=== PATIENT | female | born 1950 | race Caucasian/White ===

== ENCOUNTER 2017-05-01 13:45 | Outpatient (RCR) | payer MEDICARE, OTHER, SELFPAY ==
[2017-04-23 01:21] VITALS: BP 130/73; PULSE 79; RESP 18; TEMP 36.3; BMI 22.8
[2017-04-24 13:58] VITALS: BP 129/79; PULSE 75; RESP 18; TEMP 36.6; BMI 22.8
--- NOTE | 2017-04-24 15:46 | PCM.WC.PN ---
(1) Non-pressure chronic ulcer of other part of right lower leg with fat layer exposed Status: Acute Current Visit: Yes Code(s): L97.812 - Non-pressure chronic ulcer of other part of right lower leg with fat layer exposed (2) Venous insufficiency (chronic) (peripheral) Status: Chronic Current Visit: Yes Comment: I87.2 (3) Struck by falling object Status: Acute Current Visit: Yes Qualifiers: Encounter type: initial encounter Code(s): W20.8XXA - Other cause of strike by thrown, projected or falling object, initial encounter Type of Wound Date of Service: 04/24/17 Chief Complaint: R parekh wound History of Wound: 66 year old woman with PMH significant for SLE, RA, OA presents with 2 week history of R parekh non-healing ulcer present since her accidentally dropped a TV remote on her leg. Has been covering with dry gauze dressing only. Denies pus,malodor, warmth,pain. Has multiple spider and vericose veins, has never seen a vascular surgeon. Has had vascular testing, so we will obtain these results from [facility]. 03/06--ELINA wnl, venous testing negative for DVT but they did not check for reflux. Using vic every other day, notes minimal drainage. Ulcer stable. Tolerated light spandagrip well. 03/13--Improved with increased compression. Denies redness, pus, malodor, warmth, pain. 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 Referral to Dr. Alcala for possible EVLA. Ulceration non-healing due to venous insufficiency. 03/20--Improved with increased compression. Denies redness, pus, malodor, warmth, pain. 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 Referral to Dr. Alcala for possible EVLA. Ulceration non-healing due to venous insufficiency. 03/27--Ulcer measuring larger due to 3M wrap and stasis pad causing skin tear. Will discontinue this and go back to spandagrip moderate compression. Pending consult with Dr. Alcala for venous insufficiency. 04/10--Unchanged. Awaiting consult with Dr. Alcala for venous insufficiency. If ulceration still not improving, plan for biopsy to assess for other etiology. Denies redness, pus,malodor,warmth, pain. Denies N/V/F/C. 04/24/17--Improved. Awaiting consult with Dr. Alcala for venous insufficiency. If ulceration stops improving, plan for biopsy to assess for other etiology. Denies redness, pus,malodor,warmth, pain. Denies N/V/F/C. Progress of Wound: Improved. - Physical Exam Vital Signs Temp Pulse Resp BP 97.8 F 75 18 129/79 H 04/24/17 13:58 04/24/17 13:58 04/24/17 13:58 04/24/17 13:58 General: Alert, Oriented x3, Cooperative, No apparent distress Skin: Ulcer/ Wound - R parekh with no erythema, no malodor, no pus, no calor, no TTP. No clinical signs of acute bacterial infection noted. See nurse's wound assessment. Wound Measurements and Assessment WC - Nurse 1 - General Ulcer Measurement Start: 04/24/17 13:58 Freq: Status: Active Protocol: Activity Type Activity Date Activity User E-Sign Co-Sign Detail Recorded Client Recorded Date Recorded By Document 04/24/17 13:58 DL [id number] 04/24/17 14:04 DL 04/24/17 13:58 Wound Center Nurse 1 [Ulcer Assessment Protocol: WC.WD.LOC] #1 Right Lower Parekh -Current Size (cm) - Length 1.5 -Current Size (cm) - Width 2.3 -Current Size (cm) - Depth 0.1 -Total Square Cm 3.45 -Photo Taken No -Exudate Amt Small (1-33%) -Exudate Type Serosanguineous -Wound Margin Distinct, Outline Attached -Granulation Amt Large (67-100%) -Granulation Quality Hyper- granulation Red -Necrosis Amt Small (1-33%) -Necrotic Tissue Type Adherent Slough -Structure Exposed N/A -Texture (Kanchan-wound Skin Appearance) Scarring -Moisture (Kanchan-wound Skin Appearance No Abnormality ) -Color (Kanchan-wound Skin Appearance) No Abnormality -Temperature (Kanchan-wound Skin No Abnormality Appearance) (Pt Warm) -Ulcer Cleansing Wound Cleanser -Foul Odor after Cleansing No -Anesthetic Used 4% Lidocaine Solution [Edema Assessment] -Right Calf (cm) 33 -Right Ankle (cm) 21 WC - Nurse 2 - General Ulcer CM Notes Start: 04/24/17 13:58 Freq: Status: Active Protocol: Activity Type Activity Date Activity User E-Sign Co-Sign Detail Recorded Client Recorded Date Recorded By Document 04/24/17 14:58 MW [id number] 04/24/17 15:02 MW 04/24/17 14:58 Wound Center Nurse 2 [Procedure/Treatment] #1 Right Lower Parekh -Time 14:58 -Correct Patient Yes -Correct Side, Site, Position Yes -Correct Procedure Yes -Procedure Performed Yes -Type of Procedure Debridement -Clinical Debridement Subcutaneous -Post Debridement Size (cm) - Length 1.6 -Post Debridement Size (cm) - Width 2.4 -Post Debridement Size (cm) - Depth 0.1 -Total Square Cm 3.84 -Wound/Ulcer Outcome Not Healed -Ulcer Cleansing Rinsed/ Irrigated with Saline -Foul Odor after Cleansing No -Bioengineered Tissue No -Cetacaine [place] No -Bleeding Controlled with Pressure -Treatment Response Procedure Tolerated Well [See Physician Procedure note for Specifics] Pain Scale: 0-10 Numeric [Pain] -Is Patient Pain Free? Yes Debridement Note Post-Debridement Measurements/Treatment - Nurse 2 - General Ulcer CM Notes Start: 04/24/17 13:58 Freq: Status: Active Protocol: Activity Type Activity Date Activity User E-Sign Co-Sign Detail Recorded Client Recorded Date Recorded By Document 04/24/17 14:58 MW [id number] 04/24/17 15:02 MW 04/24/17 14:58 Wound Center Nurse 2 #1 Right Lower Parekh -Time 14:58 -Correct Patient Yes -Correct Side, Site, Position Yes -Correct Procedure Yes -Procedure Performed Yes -Type of Procedure Debridement -Clinical Debridement Subcutaneous -Post Debridement Size (cm) - Length 1.6 -Post Debridement Size (cm) - Width 2.4 -Post Debridement Size (cm) - Depth 0.1 -Total Square Cm 3.84 -Wound/Ulcer Outcome Not Healed -Ulcer Cleansing Rinsed/ Irrigated with Saline -Foul Odor after Cleansing No -Bioengineered Tissue No -Cetacaine [place] No -Bleeding Controlled with Pressure -Treatment Response Procedure Tolerated Well Pain Scale: 0-10 Numeric Is Patient Pain Free? Yes Wound debrided: R parekh Laterality: Right Wound Grade/Stage: Full thickness, nonhealing due to venous insufficiency Type of Debridement: Excisional debridement Anesthesia Used: 4% Lidocaine Solution Depth: Down to and including healthy tissue, in the subcutaneous layer Percentage of wound debrided: 100 Instrument Used: 3mm curette Tissue Removed: fibrous slough, hypergranular tissue Severity: Fat Layer Exposed Amount of bleeding with debridement: Mild Bleeding Controlled with: Pressure, Compression and gauze, Silver Nitrate - for hypergranular tissue Patient tolerated procedure well Assessment/Plan Active Problems Non-pressure chronic ulcer of other part of right lower leg with fat layer exposed (Acute) Struck by falling object (Acute) Venous insufficiency (chronic) (peripheral) (Chronic) I87.2 Assessment: see diagnoses Plan: SQ/excisional debridment R parekh ulcer as above. Cont promogran and dry dressing, moderate spandagrip. Change 3x/week, may decrease to q3days if promogran is not completely dissolving. Discussed importance of leg elevation, avoiding idle sitting or standing, increasing activity, weight management. Pt unable to take PO NSAIDs due to interactions with other medications except admits to taking one advil daily which does help with her pain. Ulcer does not require offloading due to location, but do not cross legs. Referral to vascular surgery for venous insufficiency--this visit is scheduled for tomorrow. Monitor for redness, pus, malodor, warmth, pain, inc swelling as well as for N/V/F/C and go to the ED with these. RTC 1 week, call with questions.
[2017-05-01 13:52] VITALS: BP 112/74; PULSE 83; RESP 16; TEMP 36.3; BMI 22.8
--- NOTE | 2017-05-01 14:39 | PCM.WC.PN ---
(1) Non-pressure chronic ulcer of other part of right lower leg with fat layer exposed Status: Acute Current Visit: Yes Code(s): L97.812 - Non-pressure chronic ulcer of other part of right lower leg with fat layer exposed (2) Venous insufficiency (chronic) (peripheral) Status: Chronic Current Visit: Yes Comment: I87.2 (3) Struck by falling object Status: Acute Current Visit: Yes Qualifiers: Encounter type: initial encounter Code(s): W20.8XXA - Other cause of strike by thrown, projected or falling object, initial encounter Type of Wound Date of Service: 05/01/17 Chief Complaint: R sotelo wound History of Wound: 66 year old woman with PMH significant for SLE, RA, OA presents with 2 week history of R sotelo non-healing ulcer present since her accidentally dropped a TV remote on her leg. Has been covering with dry gauze dressing only. Denies pus,malodor, warmth,pain. Has multiple spider and vericose veins, has never seen a vascular surgeon. Has had vascular testing, so we will obtain these results from [facility]. 03/06--ELINA wnl, venous testing negative for DVT but they did not check for reflux. Using vic every other day, notes minimal drainage. Ulcer stable. Tolerated light spandagrip well. 03/13--Improved with increased compression. Denies redness, pus, malodor, warmth, pain. 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 Referral to Dr. Alcala for possible EVLA. Ulceration non-healing due to venous insufficiency. 03/20--Improved with increased compression. Denies redness, pus, malodor, warmth, pain. 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 Referral to Dr. Alcala for possible EVLA. Ulceration non-healing due to venous insufficiency. 03/27--Ulcer measuring larger due to 3M wrap and stasis pad causing skin tear. Will discontinue this and go back to spandagrip moderate compression. Pending consult with Dr. Alcala for venous insufficiency. 04/10--Unchanged. Awaiting consult with Dr. Alcala for venous insufficiency. If ulceration still not improving, plan for biopsy to assess for other etiology. Denies redness, pus,malodor,warmth, pain. Denies N/V/F/C. 04/24/17--Improved. Awaiting consult with Dr. Alcala for venous insufficiency. If ulceration stops improving, plan for biopsy to assess for other etiology. Denies redness, pus,malodor,warmth, pain. Denies N/V/F/C. 05/01/18--Not improved. Pt has consult with Dr. Alcala next week. Given ulcer not improved, discussed biopsy with the patient. Per the patient, she does have a history of basal cell carcinoma in this same area several months ago and saw Dr. Bailey in [place] for this. Per the patient, she was told that it was removed. Pt states she prefers to see another bottle packer if she does need to see one. Will refer her to a Mohs surgeon, Dr. Flaherty, in [place] for possible basal cell carcinoma R sotelo. She does denies any redness, pus, malodor, warmth, pain. Denies N/V/F/C. Progress of Wound: Not improved. - Physical Exam Vital Signs Temp Pulse Resp BP 97.4 F L 83 16 112/74 05/01/17 13:52 05/01/17 13:52 05/01/17 13:52 05/01/17 13:52 General: Alert, Oriented x3, Cooperative, No apparent distress Skin: Ulcer/ Wound - R sotelo with no erythema, no malodor, no pus, no calor, no TTP. No clinical signs of acute bacterial infection noted. See nurse's wound assessment. There is hypergranular tissue. Wound Measurements and Assessment - Nurse 1 - General Ulcer Measurement Start: 04/24/17 13:58 Freq: Status: Active Protocol: Activity Type Activity Date Activity User E-Sign Co-Sign Detail Recorded Client Recorded Date Recorded By Document 05/01/17 13:52 DL [id number] 05/01/17 13:58 DL 05/01/17 13:52 Wound Center Nurse 1 [Ulcer Assessment Protocol: WC.WD.LOC] #1 Right Lower Sotelo -Current Size (cm) - Length 1.6 -Current Size (cm) - Width 2 -Current Size (cm) - Depth 0.1 -Total Square Cm 3.2 -Photo Taken No -Exudate Amt Medium (34-66%) -Exudate Type Purulent -Wound Margin Distinct, Outline Attached -Granulation Amt Large (67-100%) -Granulation Quality Red -Necrosis Amt Small (1-33%) -Necrotic Tissue Type Adherent Slough -Structure Exposed N/A -Texture (Kanchan-wound Skin Appearance) Scarring -Moisture (Kanchan-wound Skin Appearance No Abnormality ) -Color (Kanchan-wound Skin Appearance) Rubor -Temperature (Kanchan-wound Skin No Abnormality Appearance) (Pt Warm) -Tenderness on Palpation (Kanchan-wound Yes Skin Appearance) -Ulcer Cleansing Rinsed/ Irrigated with Saline -Foul Odor after Cleansing No -Anesthetic Used 4% Lidocaine Solution [Edema Assessment] -Right Calf (cm) 31.3 -Right Ankle (cm) 21.3 WC - Nurse 2 - General Ulcer CM Notes Start: 04/24/17 13:58 Freq: Status: Active Protocol: Activity Type Activity Date Activity User E-Sign Co-Sign Detail Recorded Client Recorded Date Recorded By Document 05/01/17 14:25 MW [id number] 05/01/17 14:30 MW 05/01/17 14:25 Wound Center Nurse 2 [Procedure/Treatment] #1 Right Lower Sotelo -Time 14:27 -Correct Patient Yes -Correct Side, Site, Position Yes -Correct Procedure Yes -Procedure Performed No -Post Debridement Size (cm) - Length 1.6 -Post Debridement Size (cm) - Width 2.0 -Post Debridement Size (cm) - Depth 0.1 -Total Square Cm 3.20 -Wound/Ulcer Outcome Not Healed -Ulcer Cleansing Rinsed/ Irrigated with Saline -Foul Odor after Cleansing No -Bioengineered Tissue No -Cetacaine [place] No -Bleeding Controlled with Pressure -Treatment Response Procedure Tolerated Well [See Physician Procedure note for Specifics] Pain Scale: 0-10 Numeric [Pain] -Is Patient Pain Free? Yes Debridement Note Post-Debridement Measurements/Treatment WC - Nurse 2 - General Ulcer CM Notes Start: 04/24/17 13:58 Freq: Status: Active Protocol: Activity Type Activity Date Activity User E-Sign Co-Sign Detail Recorded Client Recorded Date Recorded By Document 04/24/17 14:58 MW [id number] 04/24/17 15:02 MW Document 05/01/17 14:25 MW [id number] 05/01/17 14:30 MW 04/24/17 05/01/17 14:58 14:25 Wound Center Nurse 2 #1 Right Lower Sotelo -Time 14:58 14:27 -Correct Patient Yes Yes -Correct Side, Site, Position Yes Yes -Correct Procedure Yes Yes -Procedure Performed Yes No -Type of Procedure Debridement -Clinical Debridement Subcutaneous -Post Debridement Size (cm) - Length 1.6 1.6 -Post Debridement Size (cm) - Width 2.4 2.0 -Post Debridement Size (cm) - Depth 0.1 0.1 -Total Square Cm 3.84 3.20 -Wound/Ulcer Outcome Not Healed Not Healed -Ulcer Cleansing Rinsed/ Rinsed/ Irrigated with Irrigated with Saline Saline -Foul Odor after Cleansing No No -Bioengineered Tissue No No -Cetacaine [place] No No -Bleeding Controlled with Pressure Pressure -Treatment Response Procedure Procedure Tolerated Well Tolerated Well Pain Scale: 0-10 Numeric Is Patient Pain Free? Yes Yes No debridement was completed today Assessment/Plan Active Problems Non-pressure chronic ulcer of other part of right lower leg with fat layer exposed (Acute) Struck by falling object (Acute) Venous insufficiency (chronic) (peripheral) (Chronic) I87.2 Assessment: see diagnoses Plan: Exam. A total of 25 minutes was spent [id number] with the patient, and over half of that time was spent on counseling coordination of care, and discussing her diagnoses. Referral to Dr. Flaherty, [facility] [employer], in [place]. Cont promogran and dry dressing, moderate spandagrip. Change 3x/week, may decrease to q3days if promogran is not completely dissolving. Discussed importance of leg elevation, avoiding idle sitting or standing, increasing activity, weight management. Pt unable to take PO NSAIDs due to interactions with other medications except admits to taking one advil daily which does help with her pain. Ulcer does not require offloading due to location, but do not cross legs. Referral to vascular surgery for venous insufficiency, pt states now is scheduled for next week. Monitor for redness, pus, malodor, warmth, pain, inc swelling as well as for N/V/F/C and go to the ED with these. RTC 1 week, call with questions.
--- NOTE | 2017-05-01 14:44 | PN.PCM_ITS ---
(1) Non-pressure chronic ulcer of other part of right lower leg with fat layer exposed Status: Acute Current Visit: Yes Code(s): L97.812 - Non-pressure chronic ulcer of other part of right lower leg with fat layer exposed (2) Venous insufficiency (chronic) (peripheral) Status: Chronic Current Visit: Yes Comment: I87.2 (3) Struck by falling object Status: Acute Current Visit: Yes Qualifiers: Encounter type: initial encounter Code(s): W20.8XXA - Other cause of strike by thrown, projected or falling object , initial encounter Type of Wound Date of Service: 05/01/17 Chief Complaint: R sotelo wound History of Wound: 66 year old woman with PMH significant for SLE, RA, OA presents with 2 week history of R sotelo non-healing ulcer present since her accidentally dropped a TV remote on her leg. Has been covering with dry gauze dressing only. Denies pus,malodor, warmth,pain. Has multiple spider and vericose veins, has never seen a vascular surgeon. Has had vascular testing , so we will obtain these results from [facility]. 03/06--ELINA wnl, venous testing negative for DVT but they did not check for reflux. Using vic every other day, notes minimal drainage. Ulcer stable. Tolerated light spandagrip well. 03/13--Improved with increased compression. Denies redness, pus, malodor , warmth, pain. 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 Referral to Dr. Alcala for possible EVLA. Ulceration non-healing due to venous insufficiency. 03/20--Improved with increased compression. Denies redness, pus, malodor, warmth, pain. 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 Referral to Dr. Alcala for possible EVLA. Ulceration non-healing due to venous insufficiency. 03/27--Ulcer measuring larger due to 3M wrap and stasis pad causing skin tear. Will discontinue this and go back to spandagrip moderate compression. Pending consult with Dr. Alcala for venous insufficiency. 04/10--Unchanged. Awaiting consult with Dr. Alcala for venous insufficiency. If ulceration still not improving, plan for biopsy to assess for other etiology. Denies redness, pus,malodor,warmth, pain. Denies N/V/F/C. 04/24/17--Improved. Awaiting consult with Dr. Alcala for venous insufficiency. If ulceration stops improving, plan for biopsy to assess for other etiology. Denies redness, pus,malodor,warmth, pain. Denies N/V/F/C. 05/01/18--Not improved. Pt has consult with Dr. Alcala next week. Given ulcer not improved, discussed biopsy with the patient. Per the patient, she does have a history of basal cell carcinoma in this same area several months ago and saw Dr. Bailey in [place] for this. Per the patient, she was told that it was removed. Pt states she prefers to see another satellite project site monitor if she does need to see one. Will refer her to a Mohs surgeon, Dr. Flaherty, in [place] for possible basal cell carcinoma R sotelo. She does denies any redness, pus, malodor, warmth, pain. Denies N/V/F/C. Progress of Wound: Not improved. - Physical Exam Vital Signs Temp Pulse Resp BP 97.4 F L 83 16 112/74 05/01/17 13:52 05/01/17 13:52 05/01/17 13:52 05/01/17 13:52 General: Alert, Oriented x3, Cooperative, No apparent distress Skin: Ulcer/ Wound - R sotelo with no erythema, no malodor, no pus, no calor, no TTP. No clinical signs of acute bacterial infection noted. See nurse's wound assessment. There is hypergranular tissue. Wound Measurements and Assessment - Nurse 1 - General Ulcer Measurement Start: 04/24/17 13:58 Freq: Status: Active Protocol: Activity Type Activity Date Activity User E-Sign Co-Sign Detail Recorded Client Recorded Date Recorded By Document 05/01/17 13:52 DL [id number] 05/01/17 13:58 DL 05/01/17 13:52 Wound Center Nurse 1 [Ulcer Assessment Protocol: WC.WD.LOC] #1 Right Lower Sotelo -Current Size (cm) - Length 1.6 -Current Size (cm) - Width 2 -Current Size (cm) - Depth 0.1 -Total Square Cm 3.2 -Photo Taken No -Exudate Amt Medium (34-66%) -Exudate Type Purulent -Wound Margin Distinct, Outline Attached -Granulation Amt Large (67-100%) -Granulation Quality Red -Necrosis Amt Small (1-33%) -Necrotic Tissue Type Adherent Slough -Structure Exposed N/A -Texture (Kanchan-wound Skin Appearance) Scarring -Moisture (Kanchan-wound Skin Appearance No Abnormality ) -Color (Kanchan-wound Skin Appearance) Rubor -Temperature (Kanchan-wound Skin No Abnormality Appearance) (Pt Warm) -Tenderness on Palpation (Kanchan-wound Yes Skin Appearance) -Ulcer Cleansing Rinsed/ Irrigated with Saline -Foul Odor after Cleansing No -Anesthetic Used 4% Lidocaine Solution [Edema Assessment] -Right Calf (cm) 31.3 -Right Ankle (cm) 21.3 WC - Nurse 2 - General Ulcer CM Notes Start: 04/24/17 13:58 Freq: Status: Active Protocol: Activity Type Activity Date Activity User E-Sign Co-Sign Detail Recorded Client Recorded Date Recorded By Document 05/01/17 14:25 MW [id number] 05/01/17 14:30 MW 05/01/17 14:25 Wound Center Nurse 2 [Procedure/Treatment] #1 Right Lower Sotelo -Time 14:27 -Correct Patient Yes -Correct Side, Site, Position Yes -Correct Procedure Yes -Procedure Performed No -Post Debridement Size (cm) - Length 1.6 -Post Debridement Size (cm) - Width 2.0 -Post Debridement Size (cm) - Depth 0.1 -Total Square Cm 3.20 -Wound/Ulcer Outcome Not Healed -Ulcer Cleansing Rinsed/ Irrigated with Saline -Foul Odor after Cleansing No -Bioengineered Tissue No -Cetacaine [place] No -Bleeding Controlled with Pressure -Treatment Response Procedure Tolerated Well [See Physician Procedure note for Specifics] Pain Scale: 0-10 Numeric [Pain] -Is Patient Pain Free? Yes Debridement Note Post-Debridement Measurements/Treatment WC - Nurse 2 - General Ulcer CM Notes Start: 04/24/17 13:58 Freq: Status: Active Protocol: Activity Type Activity Date Activity User E-Sign Co-Sign Detail Recorded Client Recorded Date Recorded By Document 04/24/17 14:58 MW [id number] 04/24/17 15:02 MW Document 05/01/17 14:25 MW [id number] 05/01/17 14:30 MW 04/24/17 05/01/17 14:58 14:25 Wound Center Nurse 2 #1 Right Lower Sotelo -Time 14:58 14:27 -Correct Patient Yes Yes -Correct Side, Site, Position Yes Yes -Correct Procedure Yes Yes -Procedure Performed Yes No -Type of Procedure Debridement -Clinical Debridement Subcutaneous -Post Debridement Size (cm) - Length 1.6 1.6 -Post Debridement Size (cm) - Width 2.4 2.0 -Post Debridement Size (cm) - Depth 0.1 0.1 -Total Square Cm 3.84 3.20 -Wound/Ulcer Outcome Not Healed Not Healed -Ulcer Cleansing Rinsed/ Rinsed/ Irrigated with Irrigated with Saline Saline -Foul Odor after Cleansing No No -Bioengineered Tissue No No -Cetacaine [place] No No -Bleeding Controlled with Pressure Pressure -Treatment Response Procedure Procedure Tolerated Well Tolerated Well Pain Scale: 0-10 Numeric Is Patient Pain Free? Yes Yes No debridement was completed today Assessment/Plan Active Problems Non-pressure chronic ulcer of other part of right lower leg with fat layer exposed (Acute) Struck by falling object (Acute) Venous insufficiency (chronic) (peripheral) (Chronic) I87.2 Assessment: see diagnoses Plan: Exam. A total of 25 minutes was spent [id number] with the patient, and over half of that time was spent on counseling coordination of care, and discussing her diagnoses. Referral to Dr. Flaherty, [facility], in [place]. Cont promogran and dry dressing, moderate spandagrip. Change 3x/week, may decrease to q3days if promogran is not completely dissolving. Discussed importance of leg elevation, avoiding idle sitting or standing, increasing activity, weight management. Pt unable to take PO NSAIDs due to interactions with other medications except admits to taking one advil daily which does help with her pain. Ulcer does not require offloading due to location, but do not cross legs. Referral to vascular surgery for venous insufficiency, pt states now is scheduled for next week. Monitor for redness, pus, malodor, warmth, pain , inc swelling as well as for N/V/F/C and go to the ED with these. RTC 1 week, call with questions.
== END 2017-05-23 23:59 ==
LOC: WC 13:45
PROVIDERS: Family Provider Family Medicine; PCP Family Medicine; Visit Provider Podiatrist Foot & Ankle Surgery
DX: I87.2 Venous insufficiency (chronic) (peripheral) (principal); L97.812 Non-pressure chronic ulcer of other part of right lower leg with fat layer exposed; M32.9 Systemic lupus erythematosus, unspecified; M19.90 Unspecified osteoarthritis, unspecified site; M06.9 Rheumatoid arthritis, unspecified; Z85.828 Personal history of other malignant neoplasm of skin
CPT/HCPCS: 11042; 99213; G0463

== ENCOUNTER → 2017-06-13 13:46 | Outpatient (CLI) | payer MEDICARE, OTHER, SELFPAY ==
--- NOTE | 2017-06-13 13:50 | VDLE_ITS ---
Reason For Study: LEG PAIN AND SWELLING RIGHT LEFT CFV is compressible, spontaneous, phasic, CFV is compressible, spontaneous, phasic, competent and demonstrates normal competent, and demonstrates normal augmentation. augmentation. Procedure FV is compressible, spontaneous, phasic, Exam performed in department. competent and demonstrates normal augmentation. POP V is compressible, spontaneous, phasic, competent and demonstrates normal augmentation. T/P Trunk is compressible. PTV is compressible. LT PerV is compressible. 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 Interpretation Summary 1. Left leg with no DVT. 2. Left GSV 6mm wth reflux 3. Left LSV 3.4mm with reflux. Ordering Physician: Edwin Alcala Referring Physician: Edwin Alcala Performed By: Pascale Grover RVT
== END ==
PROVIDERS: Family Provider Family Medicine; PCP Family Medicine; Visit Provider Surgery Vascular Surgery
DX: M79.605 Pain in left leg (principal); M79.89 Other specified soft tissue disorders; I87.309 Chronic venous hypertension (idiopathic) without complications of unspecified lower extremity
CPT/HCPCS: 93971

== ENCOUNTER 2020-07-01 13:39 | Outpatient (RCR) | payer MEDICARE, SELFPAY ==
[2020-07-01] MEDS: COVID-19 VACC, MRNA(PFIZER)/PF 30 MCG/0.3 ML SYRINGE IM (14:08)
[2020-07-22] MEDS: COVID-19 VACC, MRNA(PFIZER)/PF 30 MCG/0.3 ML SYRINGE IM (14:00)
== END 2020-09-28 23:59 ==
LOC: IMMUN 13:39
PROVIDERS: PCP Family Medicine; Visit Provider Family Medicine
DX: Z23 Encounter for immunization (principal)
CPT/HCPCS: 0001A; 0002A; 91300

== ENCOUNTER → 2025-01-27 | Outpatient (CLI) | payer MEDICARE, SELFPAY ==
--- NOTE | 2025-01-27 09:40 | RAD_ITS ---
EXAM: XR Pelvis, 1 or 2 Views CLINICAL INDICATION: RHEUMATOID ARTHRITIS WITH RHEUMATOID TECHNIQUE: Frontal view of the pelvis. COMPARISON: No relevant prior studies available. FINDINGS: BONES/JOINTS: Mild degenerative change of the hip joints, bilaterally. No acute fracture. No dislocation. SOFT TISSUES: Unremarkable. RAD/Pelvis 1 or 2 Views IMPRESSION: Mild degenerative change of the hip joints, bilaterally. Reading Location: [id number]
[2025-01-27 10:18] LABS: EXAGEN MAILED SPECIMEN
[2025-01-27 10:26] LABS: Hematocrit 41.0 % (37-47); Hemoglobin 13.3 g/dL (12.0-15.0); Immature Granulocytes Count 0.010 X10^3/uL (0.0-0.0); Mean Corp Hgb Conc 32.4 g/dL (32-36); Mean Corpuscular Volume 89.1 fL (81-99); Mean Platelet Vol. 9.2 fl (6.2-12.0); NRBC Flagged by Analyzer 0 % (0-5); Platelet Count 364 K/mm3 (150-450); RBC Distribution Width CV 13.8 % (11.6-14.6); RBC Distribution Width SD 45.1 fl (35.1-43.9); Red Blood Count 4.60 M/mm3 (4.2-5.4); White Blood Count 5.0 K/mm3 (4.4-11.0)
[2025-01-27 10:34] LABS: Creatinine, Urine (random) 93.20 mg/dL (28.00-217.00); Protein, Urine (Random) 11.3 mg/dL (0.0-12.0); Protein:Creat Ratio 121 mg/g CRE (0-200)
[2025-01-27 11:00] LABS: AST(SGOT) 29 U/L (<=31); Alanine Aminotransfer ALT/SGPT 20 U/L (<=34); Albumin, Serum 4.2 g/dL (3.4-4.8); Alkaline Phosphatase 91 U/L (35-104); Anion Gap 14 (5-15); BUN 15 mg/dL (4-19); BUN/Creat Ratio 22.6 RATIO (10-20); CRP 17.60 mg/L (0.0-3.0); Calcium,Total 10.8 mg/dL (7.6-11.0); Carbon Dioxide 23.1 mmol/L (21.0-32.0); Chloride 103 mmol/L (98-108); Globulin 2.7 g/dL (2.2-4.2); Glucose 103 mg/dL (70-99); Hepatitis B Surface Antigen Nonreactive (Nonreactive); Hepatitis C Antibody Nonreactive (Nonreactive); Potassium 3.9 mmol/L (3.3-5.1)
[2025-01-27 18:40] LABS: Color, Urine Yellow (Yellow); Glucose, Dipstick Normal (Normal); Ketone-Dipstick Negative (Negative); Leukocyte Esterase-Dipstick Negative /ul (Negative); Nitrite-Dipstick Negative (Negative); Occult Blood-Urine Negative /ul (Negative); Protein-Dipstick Negative (Negative); Specific Gravity, Urine 1.015 (1.002-1.030); Urine Bilirubin Dipstick Negative (Negative)
[2025-01-30 05:07] LABS: Dilute Russell Viper Venom 41.5 sec (0.0-47.0); Interpretation Comment: (.); PTT-LA 41.4 sec (0.0-43.5); QNTFERON TB Mitogen Value 4.45 IU/mL (.); QNTFERON TB Nil Value 0.03 IU/mL (.); QNTFERON TB1+ Ag Value 0.03 IU/mL (.); QNTFERON TB2+ Ag Value 0.04 IU/mL (.); QNTIFERON TB Positive Criteria Negative (Negative)
== END | disposition home or self-care (01) ==
LOC: LAB 09:15
PROVIDERS: PCP Family Medicine; Referring Provider Internal Medicine Rheumatology; Visit Provider Internal Medicine Rheumatology
DX: M35.1 Other overlap syndromes (principal); M05.70 Rheumatoid arthritis with rheumatoid factor of unspecified site without organ or systems involvement; M32.9 Systemic lupus erythematosus, unspecified; Z79.899 Other long term (current) drug therapy; M18.0 Bilateral primary osteoarthritis of first carpometacarpal joints; M17.0 Bilateral primary osteoarthritis of knee
CPT/HCPCS: 36415; 72170; 80053; 81002; 82570; 84156; 85025; 85652; 86140; 86480; 86706; 86803; 87340